=== PATIENT | female | born 1995 | race American Indian/Alaskan Native ===

== ENCOUNTER 2017-06-23 17:48 | Emergency (ER) | payer MEDICAID ==
[2017-06-23 18:07] VITALS: BP 107/56
[2017-06-23] MEDS ORDERED: TRIPLE ANTIBIOTIC TP ONE (20:59)
[2017-06-23] MEDS ORDERED: XYLOCAINE 2% INFILTRATI ONE (20:59)
[2017-06-23] MEDS ORDERED: NACL 0.9% IR ONE (21:00)
[2017-06-23] MEDS ORDERED: BOOSTRIX IM ONE (22:33)
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
--- NOTE | 2017-06-24 08:06 | XRay Report ---
X-RAY RIGHT FOREARM TWO VIEWS : 06/23/17 22:32:00 CLINICAL: Trauma and pain. FINDINGS: No fracture or dislocation. A soft tissue laceration on the medial aspect at the junction of middle and distal thirds. No foreign body or soft tissue air. No joint effusion. IMPRESSION: Soft tissue injury and otherwise normal.
== END 2017-06-23 23:10 | disposition home or self-care (01) ==
LOC: ED 17:48
DX: S51.811A Laceration without foreign body of right forearm, initial encounter (principal); W22.8XXA Striking against or struck by other objects, initial encounter; Y93.9 Activity, unspecified; Y99.9 Unspecified external cause status; Y92.89 Other specified places as the place of occurrence of the external cause
CPT/HCPCS: 90471; 90715; A6250